=== PATIENT | female | born 1985 | race Caucasian/White ===

== ENCOUNTER 2019-07-10 09:00 | Outpatient (REF) | payer SELFPAY ==
[2019-07-12 14:01] LABS: Quantiferon Mitogen 7.62 IU/mL; Quantiferon Nil 0.01 IU/mL; Quantiferon Plus TB1 0.01 IU/mL; Quantiferon Plus TB2 0.01 IU/mL; Quantiferon TB Gold NEGATIVE (NEGATIVE)
== END 2019-07-10 09:01 | disposition home or self-care (01) ==
LOC: LAB 09:00
PROVIDERS: Family Provider Registered Nurse; PCP Registered Nurse
DX: Z01.89 Encounter for other specified special examinations (principal)
CPT/HCPCS: 86480

== ENCOUNTER 2020-09-01 13:17 | Outpatient (CLI) | payer MEDICAID, SELFPAY ==
--- NOTE | 2020-09-01 13:23 | CT_ITS ---
WS: [id number] CT NECK TECHNIQUE: Contrast-enhanced CT of the neck with coronal and sagittal reformatted images. CLINICAL INFORMATION: NONTOXIC SINGLE THYROID NODLE COMPARISON: Ultrasound March 31, 2020 DLP: 2387.[address] scans at [facility] use at least one of these dose optimization techniques: automat ed exposure control; mA and/or kV adjustment per patient size (includes targeted exams where dose is matched to clinical indication); or iterative reconstruction. FINDINGS: Heterogeneous enhancing enlarged thyroid consistent with goiter. This is similar in appearance to lisa or ultrasound March 2020. No dominant nodules. Bulbous nodular enlargement of the isthmus. Partially visualized intracranial contents are normal. Mastoid air cells and paranasal sinuses are we ll aerated. Parotid glands are normal. Normal submandibular glands. Normal parapharyngeal fat. Normal posterior nasopharynx. No evidence of supraglottic or glottic mass. Normal subglottic airway. A few slightly prominent cervical lymph nodes not pathologically enlarged. No cervical lymphadenopath y. CT/CT neck w con* [id number] IMPRESSION: 1. Normal salivary glands. 2. No cervical lymphadenopathy. 3. Enlarged heterogeneous thyroid consistent with goiter similar in appearance the prior ultrasound in 2019. Bulbous enlargement of the isthmus. 4. No evidence of supraglottic or glottic mass. 5. No other significant findings.
[2020-09-01] MEDS: iohexol 300 mg/mL 100 mL Btl IV (13:45)
== END 2020-09-01 13:18 | disposition home or self-care (01) ==
LOC: RADWPI 13:22
PROVIDERS: PCP Nurse Practitioner Family; Visit Provider Specialist
DX: E04.1 Nontoxic single thyroid nodule (principal); E04.9 Nontoxic goiter, unspecified
CPT/HCPCS: 70491; Q9967

== ENCOUNTER 2020-11-25 09:20 | Outpatient (CLI) | payer MEDICAID, SELFPAY ==
--- NOTE | 2020-11-25 09:30 | MR_ITS ---
WS: [id number] MRI RIGHT KNEE HISTORY: M25.569 - Pain in unspecified knee COMPARISON: 03/22/2016 and radiographs 10/22/2020 Anterior cruciate ligament: Intact. Posterior cruciate ligament: Intact. Medial collateral ligament: Intact. Posterior lateral corner structures: Intact. Medial menisci: There is increased signal in the posterior horn of the medial meniscus seen in the pe riphery. This is more likely intrasubstance degeneration than a tear. The anterior horn is normal. Lateral meniscus: Intact. Normal signal, size and shape. Extensor mechanism: Distal quadriceps tendon and patellar tendons are intact. Fluid and soft tissue: No joint effusion. No Marie's cyst. Osseous and articular structures: Patellofemoral compartment: Normal. Medial compartment: Very minimal narrowing of the medial compartment. Mild thinning of the cartilage but no full-thickness defect or marrow edema. No significant osteophyte formation. Lateral compartment: Normal. MR/MR knee RT wo con* [id number] IMPRESSION: 1. Very mild intrasubstance degeneration in the periphery posterior horn media l meniscus. No tear identified. 2. No joint effusion. 3. Mild narrowing medial compartment.
== END 2020-11-25 09:21 | disposition home or self-care (01) ==
LOC: RADSHAW 09:25
PROVIDERS: PCP Nurse Practitioner Family; Visit Provider Orthopaedic Surgery
DX: M25.561 Pain in right knee (principal)
CPT/HCPCS: 73721

== ENCOUNTER → 2021-05-17 09:12 | Outpatient (BNVA) | payer MEDICAID, SELFPAY | PROVIDERS: PCP Nurse Practitioner Family; Referring Provider Nurse Practitioner Family; Visit Provider Orthopaedic Surgery | DX: M54.50 Low back pain, unspecified (principal) | CPT/HCPCS: 72110 ==

== ENCOUNTER → 2022-05-04 10:33 | Outpatient (BNVA) | payer MEDICAID, SELFPAY | PROVIDERS: PCP Nurse Practitioner Family; Visit Provider Student in an Organized Health Care Education/Training Program | DX: M67.431 Ganglion, right wrist (principal) | CPT/HCPCS: 73110 ==

== ENCOUNTER 2022-05-04 13:42 | Outpatient (CLI) | payer MEDICAID, SELFPAY | END 2022-05-04 13:43 | disposition home or self-care (01) | LOC: SPT 13:43 | PROVIDERS: PCP Nurse Practitioner Family; Visit Provider Student in an Organized Health Care Education/Training Program | DX: Z46.89 Encounter for fitting and adjustment of other specified devices (principal); M25.531 Pain in right wrist | CPT/HCPCS: 97760; L3908 ==

== ENCOUNTER 2022-05-31 09:01 | Outpatient (CLI) | payer MEDICAID, SELFPAY ==
--- NOTE | 2022-05-31 09:12 | FL_ITS ---
WS: [id number] Upper GI series with air contrast, 05/31/2022 Clinical Data: CHEST DISCOMFORT Comparison: None. Fluoroscopy time: 1min [id number] # of spot films: 12 Findings: The patient swallowed the air and barium mixture and it flowed from the oropharynx into the hypophary nx without hesitation. There is no penetration or aspiration. The barium proceeded into the esophagus which showed no polyp, masses, erosion, hiatal hernia, esophagitis, fistula or erosion. No reflux wa s seen. The barium proceeded into the stomach which was well-distended. There are no ulcerations or e xtrinsic masses of the stomach. No polyps could be seen. There is no gastric mucosal erosion. The bar ium passed into the duodenum which showed no ulcer. The proximal duodenum was normal. There are clips in the right upper quadrant from a cholecystectomy. FL/FL upper GI series [id number] Impression: Negative upper GI series.
== END 2022-05-31 09:02 | disposition home or self-care (01) ==
LOC: RAD 09:05
PROVIDERS: PCP Nurse Practitioner Family; Visit Provider Nurse Practitioner Family
DX: R07.89 Other chest pain (principal)
CPT/HCPCS: 74240

== ENCOUNTER → 2022-10-09 09:16 | Outpatient (BNVA) | payer MEDICAID, SELFPAY | PROVIDERS: PCP Nurse Practitioner Family; Visit Provider Obstetrics & Gynecology | DX: E03.9 Hypothyroidism, unspecified (principal); N76.0 Acute vaginitis; R10.2 Pelvic and perineal pain | CPT/HCPCS: 83036; 84443 ==

== ENCOUNTER → 2022-11-08 15:04 | Outpatient (BNVA) | payer MEDICAID, SELFPAY | PROVIDERS: PCP Nurse Practitioner Family; Visit Provider Obstetrics & Gynecology | DX: D25.9 Leiomyoma of uterus, unspecified (principal) | CPT/HCPCS: 76830 ==

== ENCOUNTER → 2023-01-31 08:15 | Outpatient (BNVA) | payer MEDICAID, SELFPAY | PROVIDERS: PCP Nurse Practitioner Family; Visit Provider Nurse Practitioner Women's Health | DX: N39.0 Urinary tract infection, site not specified (principal) | CPT/HCPCS: 81000 ==

== ENCOUNTER → 2023-03-01 01:00 | Outpatient (BNVA) | payer MEDICAID, SELFPAY | PROVIDERS: PCP Nurse Practitioner Family; Visit Provider Nurse Practitioner Women's Health | DX: R30.0 Dysuria (principal) | CPT/HCPCS: 81000; 87086 ==

== ENCOUNTER → 2023-03-20 14:11 | Outpatient (BNVA) | payer MEDICAID, SELFPAY | PROVIDERS: PCP Nurse Practitioner Family; Visit Provider Student in an Organized Health Care Education/Training Program | DX: M67.431 Ganglion, right wrist | CPT/HCPCS: 73110 ==

== ENCOUNTER → 2023-04-04 16:00 | Outpatient (BNVA) | payer MEDICAID, SELFPAY | PROVIDERS: PCP Nurse Practitioner Family; Visit Provider Nurse Practitioner Women's Health | DX: Z12.39 Encounter for other screening for malignant neoplasm of breast (principal); Z20.2 Contact with and (suspected) exposure to infections with a predominantly sexual mode of transmission | CPT/HCPCS: 87491; 87591 ==

== ENCOUNTER → 2023-04-12 10:49 | Outpatient (BNVA) | payer MEDICAID, SELFPAY | PROVIDERS: PCP Nurse Practitioner Family; Visit Provider Nurse Practitioner Women's Health | DX: R10.2 Pelvic and perineal pain (principal); N89.8 Other specified noninflammatory disorders of vagina | CPT/HCPCS: 81000; 87086; 87529 ==

== ENCOUNTER → 2023-05-16 09:21 | Outpatient (BNVA) | payer MEDICAID, SELFPAY | PROVIDERS: PCP Nurse Practitioner Family; Visit Provider Nurse Practitioner Women's Health | DX: R30.0 Dysuria (principal) | CPT/HCPCS: 81000; 87086 ==

== ENCOUNTER 2023-05-24 10:14 | Outpatient (CLI) | payer MEDICAID, SELFPAY ==
--- NOTE | 2023-05-24 10:18 | MM_ITS ---
WS: [id number] SCREENING DIGITAL TOMOSYNTHESIS MAMMOGRAM WITH CAD HISTORY: Z12.39 - Encounter for other screening for malignant neop... COMPARISON: 05/23/2018 Bilateral CC and MLO with tomosynthesis views submitted. Synthetic mammography reviewed. Computer aid ed detection analyzed. Breast composition: There are scattered areas of fibroglandular density. No suspicious masses, microc alcifications or architectural distortion. IMPRESSION: MM/[place] [id number] BI-RADS: 1-Negative FOLLOW UP: 1 Year Follow-up
== END 2023-05-24 10:15 | disposition home or self-care (01) ==
PROVIDERS: PCP Nurse Practitioner Family; Visit Provider Nurse Practitioner Women's Health
DX: Z12.31 Encounter for screening mammogram for malignant neoplasm of breast (principal)
CPT/HCPCS: 77063; 77067

== ENCOUNTER → 2023-09-06 13:51 | Outpatient (BNVA) | payer MEDICAID, SELFPAY | PROVIDERS: PCP Nurse Practitioner Family; Visit Provider Nurse Practitioner Women's Health | DX: N89.8 Other specified noninflammatory disorders of vagina (principal) | CPT/HCPCS: 87529 ==

== ENCOUNTER → 2023-11-20 16:30 | Outpatient (BNVA) | payer MEDICAID, SELFPAY | PROVIDERS: PCP Nurse Practitioner Family; Visit Provider Nurse Practitioner Women's Health | DX: R39.9 Unspecified symptoms and signs involving the genitourinary system (principal) | CPT/HCPCS: 81000 ==

== ENCOUNTER → 2023-11-21 15:40 | Outpatient (BNVA) | payer MEDICAID, SELFPAY | PROVIDERS: PCP Nurse Practitioner Family; Visit Provider Nurse Practitioner Women's Health | DX: R39.9 Unspecified symptoms and signs involving the genitourinary system (principal) | CPT/HCPCS: 87086 ==

== ENCOUNTER 2023-11-26 13:54 | Outpatient (CLI) | payer MEDICAID, SELFPAY ==
--- NOTE | 2023-11-26 14:30 | MR_ITS ---
WS: [id number] EXAMINATION: MR foot LT wo con* [id number] ORDER DATE: 11/26/2023 2:30 PM COMPARISON: None. HISTORY: rule out stress fracture CONTRAST: None. TECHNIQUE: Sagittal T1, sagittal STIR, coronal PD, coronal T2, axial T1, axial T2, and axial PD imagi ng with fat saturation technique. FINDINGS: Normal anatomic alignment. Normal ankle mortise. Normal medial and lateral malleolus. Dista l fibula is normal in appearance. Normal talar dome. Normal talocalcaneal articulation. Normal cuboid . Normal bone marrow signal in the tarsal bones. Normal deltoid ligament. Normal ATF. Small amount of fluid in the anterolateral gutter. Trace tenosynovitis along the peroneal tendon sheath. Peroneal longus and brevis appear intact. Dista l Achilles appears intact. Small amount of tenosynovitis involving the flexor compartment tendons, t ibialis posterior and flexor digitorum longus. Normal extensor compartment tendons. Suspected partial tear involving the tibialis posterior with fluid and edema along the medial ankle. Irregularity with fluid and edema along the tendon. MR/MR foot LT wo con* [id number] IMPRESSION: 1. Suspected partial tear involving the tibialis posterior distal to the media l malleolus and dorsal to the navicular with associated increased T2 signal wit h fluid and edema. 2. Small amount of tenosynovitis involving the flexor digitorum longus. 3. Normal peroneal tendons with trace tenosynovitis. 4. No visualized stress fractures
== END 2023-11-26 13:55 | disposition home or self-care (01) ==
LOC: RAD 13:55
PROVIDERS: PCP Nurse Practitioner Family; Visit Provider Podiatrist Foot & Ankle Surgery
DX: M84.30XA Stress fracture, unspecified site, initial encounter for fracture (principal); M65.862 Other synovitis and tenosynovitis, left lower leg; R60.9 Edema, unspecified
CPT/HCPCS: 73718

== ENCOUNTER → 2023-12-17 13:50 | Outpatient (BNVA) | payer SELFPAY | PROVIDERS: PCP Nurse Practitioner Family; Referring Provider Nurse Practitioner Family; Visit Provider Internal Medicine | DX: E07.9 Disorder of thyroid, unspecified (principal); E06.3 Autoimmune thyroiditis; E03.9 Hypothyroidism, unspecified; E04.1 Nontoxic single thyroid nodule | CPT/HCPCS: 36415; 83516; 84439; 84443; 86376; 86800 ==

== ENCOUNTER 2024-02-28 12:29 | Outpatient (CLI) | payer SELFPAY ==
[2024-02-28 13:32] LABS: Free T4 Free Thyroxine 1.15 ng/dL (0.82-1.77); Thyroid Stimulating Hormone 2.33 uIU/mL (0.27-4.20)
== END 2024-02-28 12:30 | disposition home or self-care (01) ==
LOC: LAB 12:30
PROVIDERS: PCP Nurse Practitioner Family; Visit Provider Internal Medicine
DX: E07.9 Disorder of thyroid, unspecified (principal); E06.3 Autoimmune thyroiditis; E03.9 Hypothyroidism, unspecified
CPT/HCPCS: 36415; 84439; 84443

== ENCOUNTER → 2024-03-11 14:04 | Outpatient (BNVA) | payer SELFPAY | PROVIDERS: PCP Nurse Practitioner Family; Visit Provider Orthopaedic Surgery | DX: M48.062 Spinal stenosis, lumbar region with neurogenic claudication (principal) | CPT/HCPCS: 72110; 73560; 73565 ==

== ENCOUNTER → 2024-04-18 11:15 | Outpatient (BNVA) | payer SELFPAY | PROVIDERS: PCP Nurse Practitioner Family; Visit Provider Nurse Practitioner | DX: M25.562 Pain in left knee (principal); M23.52 Chronic instability of knee, left knee | CPT/HCPCS: 73560; 73565 ==

== ENCOUNTER → 2024-04-21 16:23 | Outpatient (BNVA) | payer SELFPAY | PROVIDERS: PCP Nurse Practitioner Family; Visit Provider Nurse Practitioner | DX: M67.431 Ganglion, right wrist (principal) | CPT/HCPCS: 36415; 80053; 81001; 85025 ==

== ENCOUNTER → 2024-04-24 13:11 | Outpatient (BNVA) | payer SELFPAY | PROVIDERS: PCP Nurse Practitioner Family; Visit Provider Nurse Practitioner Women's Health | DX: R39.9 Unspecified symptoms and signs involving the genitourinary system (principal) | CPT/HCPCS: 81000 ==

== ENCOUNTER 2024-05-16 12:56 | Outpatient (CLI) | payer SELFPAY ==
[2024-05-16 13:48] LABS: Free T4 Free Thyroxine 1.29 ng/dL (0.82-1.77); Thyroid Stimulating Hormone 1.82 uIU/mL (0.27-4.20)
== END 2024-05-16 12:57 | disposition home or self-care (01) ==
LOC: LAB 12:56
PROVIDERS: PCP Nurse Practitioner Family; Visit Provider Internal Medicine
DX: E06.3 Autoimmune thyroiditis (principal); E04.1 Nontoxic single thyroid nodule; E03.9 Hypothyroidism, unspecified
CPT/HCPCS: 36415; 84439; 84443

== ENCOUNTER 2024-06-18 06:00 | Outpatient (RCR) | payer MEDICAID, SELFPAY | END 2024-07-04 23:59 | disposition home or self-care (01) | LOC: APT 06:00 | PROVIDERS: Visit Provider Specialist | DX: M25.562 Pain in left knee (principal) | CPT/HCPCS: 97110; 97140; 97161; 97530 ==

== ENCOUNTER → 2024-06-19 14:30 | Outpatient (BNVA) | payer MEDICAID, SELFPAY | PROVIDERS: PCP Nurse Practitioner Family; Referring Provider Nurse Practitioner; Visit Provider Specialist | DX: R29.898 Other symptoms and signs involving the musculoskeletal system (principal); R20.2 Paresthesia of skin; M25.539 Pain in unspecified wrist; R20.0 Anesthesia of skin | CPT/HCPCS: 95911 ==

== ENCOUNTER → 2024-07-02 10:20 | Outpatient (BNVA) | payer SELFPAY | PROVIDERS: PCP Nurse Practitioner Family; Visit Provider Nurse Practitioner | DX: R20.0 Anesthesia of skin (principal); R20.2 Paresthesia of skin; M67.431 Ganglion, right wrist; M25.531 Pain in right wrist | CPT/HCPCS: 36415; 80053; 85025 ==

== ENCOUNTER 2024-07-05 06:30 | Outpatient (RCR) | payer MEDICAID, SELFPAY | END 2024-08-01 23:59 | disposition home or self-care (01) | LOC: APT 06:30 | PROVIDERS: PCP Nurse Practitioner Family; Visit Provider Specialist | DX: M25.562 Pain in left knee (principal) | CPT/HCPCS: 97110; 97140; 97530 ==

== ENCOUNTER → 2024-07-14 08:06 | Outpatient (BNVA) | payer MEDICAID, SELFPAY | PROVIDERS: PCP Nurse Practitioner Family; Visit Provider Nurse Practitioner | DX: M25.532 Pain in left wrist (principal); M25.522 Pain in left elbow | CPT/HCPCS: 73080; 73110; 99214 ==

== ENCOUNTER 2024-07-29 05:56 | Day surgery (SDC) | payer SELFPAY ==
[2024-07-29] VITALS (10 sets, daily range): BP systolic 105–148; BP diastolic 60–88; PULSE 67–88; RESP 14–21; TEMP 36.1–36.6; O2SAT 94–98; BMI 35.9
[2024-07-29 06:15] LABS: OR HCG Qualitative Urine Negative (Negative)
[2024-07-29] MEDS: acetaminophen 1,000 MG/100 ML PIGGYBACK 400 MG IV (06:21)
[2024-07-29] MEDS: sodium chloride 0.9% 1,000 ML 30 ML IV (06:28)
--- NOTE | 2024-07-29 06:44 | ANES.PREANE2 ---
Pre-Anesthetic Assessment Height/Weight: Height 1.55 m Weight 86.183 kg Temp Pulse Resp BP Pulse Ox O2 Del Method 97.3 F L 83 16 148/88 98 Room Air 07/29/24 06:07 07/29/24 06:07 07/29/24 06:07 07/29/24 06:07 07/29/24 06:07 07/29/24 06:07 Operation Date: 07/29/24 07:00 Proposed Procedures p RIGHT THUMB GANGLION CYST REMOVAL(Right) - Yanira Fuentes MD Familial anesthetic complications: None Was Beta Sabrina taken within 24 hours: N/A Was Clonidine taken within 24 hours: N/A Last intake: Intake Last Liquid Date 07/28/24 Last Liquid Time 22:00 Last Solid Date 07/28/24 Last Solid Time 20:00 Social No alcohol and No tobacco Exam alert, oriented x 3, clear to auscultation bilaterally and regular rate & rhythm Airway Mallampati: Class I Dentition: full Metabolic Morbid Obesity and Thyroid Disease Anesthetic Plan ASA status: 2 Anesthesia: MAC Risk of > 500 ml blood loss (7ml/kg in children): No Medications/Allergies Home Medications ?Medication ?Instructions ?Recorded ?Confirmed ?Last Taken ?Type vitamin B12 1 mg-folic acid 0.8 mg 1 tab PO DAILY 05/19/24 07/28/24 07/28/24 History tablet levothyroxine 50 mcg capsule 50 mcg PO DIRECTED 07/28/24 07/28/24 07/28/24 History Allergies Allergy/AdvReac Type Severity Reaction Status Date / Time hydromorphone (From Dilaudid) Allergy ADR/ALGY-Hy Verified 07/28/24 12:19 potension meperidine Allergy lowers Verified 07/28/24 12:19 blood pressure Current Medications Generic Name Dose Route Start Last Admin Trade Name Freq PRN Reason Stop Dose Admin Sodium Chloride 1,000 mls @ 30 mls/hr 07/29/24 06:00 07/29/24 06:28 Sodium Chloride 0.9% IV 07/30/24 05:59 30 mls/hr .Q24H UZIEL Administration PFSH Anesthesia Surgical History History of History of cholecystectomy Family History Mother Colon cancer Father Heart disease Hypertension Grandfather Heart disease paternal Grandmother Heart disease Paternal Denies family history of Ovarian cancer Diabetes Breast cancer Uterine cancer Thyroid disease Stroke Social History Smoking and tobacco/nicotine status: never used tobacco/nicotine Alcohol intake: never Female Reproductive History Date of last menstrual period: 07/25/24 Data Anesthesia Cardiac Studies: No Data to Display
--- NOTE | 2024-07-29 07:04 | W.PM.OPSUD ---
Surgery/Procedure H&P Update DATE OF PROCEDURE: July 29, 2024 DATE H&P PERFORMED: 07/14/24 H&P UPDATE INFORMATION: I have reviewed H&P completed within last 30 days, I have examined patient prior to procedure, No changes to prior documentation and H&P is in [facility] [place] [place] EMR on date indicated PLANNED PROCEDURE: Operation Date: 07/29/24 07:00 Proposed Procedures p RIGHT THUMB GANGLION CYST REMOVAL(Right) - Yanira Fuentes MD Related Problem List Diagnoses (1) Ganglion cyst of volar aspect of right wrist:
[2024-07-29] MEDS: ceFAZolin 2,000 mg SDV 2000 MG IVP (07:06)
[2024-07-29] MEDS: BUPivacaine 0.5% INJ 30 mL XX (07:30)
--- NOTE | 2024-07-29 08:12 | PM.OP ---
Operative Report Date of procedure: July 29, 2024 Pre-op diagnosis: Right radial volar wrist ganglion cyst at the base of the thumb Post-op diagnosis: Right radial volar wrist ganglion cyst at the base of the thumb Post-op findings: Large ganglion cyst Procedure done: Excision volar wrist ganglion right Implants: None Specimens removed/disposition: Ganglion cyst submitted to pathology Pathology: Ganglion cyst submitted to pathology Surgeon: Yanira Fuentes MD [employer] Marketing Representative: None Anesthesia: General (Per LMA, ASA 2) Estimated blood loss (mL): 2 Tourniquet time (min): 17 (At 250 mmHg) IV fluids (mL): 600 Urine output (mL): 0 (No Freitas) Complications: None Findings: Large ganglion cyst Condition: stable Disposition: PACU (Then return to same-day surgery for discharge to home) Brief History: This 39-year-old woman presents with complaints of ganglion cyst on the volar surface radially of the right wrist. This is at the base of her thumb. This is painful for her and at times causes numbness into the thumb. She had evaluation with nerve conduction study secondary to some history of numbness. This was negative for carpal tunnel. At that point, she was scheduled for ganglion cyst excision. Risks and complications were discussed with her. Consents were signed and questions were answered. Procedure: The patient was brought to the operating theater. The patient had a general anesthesia per LMA, ASA 2. The tourniquet was elevated to 250 mmHg for a total tourniquet time of 17 minutes. The patient was also given Ancef 2 g preoperatively. The arm was then prepped and draped with DuraPrep in usual fashion with the arm draped free. A surgical pause was performed. At the time, the surgical pause, we confirmed the site and side of surgery. We also confirmed the patient's identity, appropriate and timely administration of preoperative antibiotics and preoperative surgical markings. The ganglion cyst was evaluated. There was a large vein laying to the radial side of it which was marked preoperatively. This was also marked prior to elevation of the tourniquet. Incision was marked and this incision was slightly curved and accomplished uneventfully. Dissection continued through skin and soft tissues using a scalpel. The ganglion cyst wall was quite thin. It did leak some of the gelatinous material within the ganglion cyst. We were able to place a small stitch there for retraction and able to shell the ganglion out of the area without injury to the surrounding structures. Hemostasis was obtained using electrocautery. The tourniquet was released to evaluate for hemostasis. Attention was directed to closure. The wound was irrigated with ropivacaine plain. It was then closed with 4-0 Monocryl subcuticular. Sterile dressing was then placed consisting of Dermabond, OpSite, fluffed fluffs, sterile soft roll, and an Maciej wrap. The tourniquet was released after 17 minutes. There were no complications. There were no specimens. The procedure was well tolerated. Plan is the patient will be discharged home. Related Problem List Diagnoses (1) Ganglion cyst of volar aspect of right wrist:
--- NOTE | 2024-07-29 09:10 | ANE.PACU2 ---
Inpatient post-anesthesia follow up: Airway intact: Yes Vital signs: Temperature 98 F Pulse Rate 67 Respiratory Rate 16 Blood Pressure 120/60 Pulse Oximetry 96 Oxygen Delivery Me thod Room Air Oxygen Flow Rate Fraction of Inspir ed Oxygen Hydration adequate: Yes Nausea and vomiting: No Pain level: 1 Mental status: Baseline
== END 2024-07-29 09:10 | disposition home or self-care (01) ==
PROVIDERS: PCP Nurse Practitioner Family; Visit Provider Specialist
PROC: (CPT 25111; principal; 2024-07-29 07:00)
DX: M67.431 Ganglion, right wrist (principal); E66.01 Morbid (severe) obesity due to excess calories; Z68.35 Body mass index [BMI] 35.0-35.9, adult; Z79.890 Hormone replacement therapy; Z88.5 Allergy status to narcotic agent; Z90.49 Acquired absence of other specified parts of digestive tract; E07.9 Disorder of thyroid, unspecified
CPT/HCPCS: 25111; 81025; 88304; J0131; J0690; J1100; J2250; J2371; J2405; J2704; J3010; J3490; J7030

== ENCOUNTER 2024-08-02 06:00 | Outpatient (RCR) | payer SELFPAY | END 2024-09-01 23:59 | disposition home or self-care (01) | LOC: APT 06:00 | PROVIDERS: PCP Nurse Practitioner Family; Visit Provider Specialist | DX: M25.562 Pain in left knee (principal) | CPT/HCPCS: 97110 ==

== ENCOUNTER 2024-08-27 15:21 | Outpatient (CLI) | payer SELFPAY | END 2024-08-27 15:22 | disposition home or self-care (01) | LOC: LAB 15:21 | PROVIDERS: PCP Nurse Practitioner Family; Visit Provider Internal Medicine | DX: E07.9 Disorder of thyroid, unspecified (principal); E06.3 Autoimmune thyroiditis; E03.9 Hypothyroidism, unspecified; E04.1 Nontoxic single thyroid nodule | CPT/HCPCS: 36415; 84439; 84443 ==

== ENCOUNTER → 2024-09-01 16:03 | Outpatient (BNVA) | payer SELFPAY | PROVIDERS: PCP Nurse Practitioner Family; Visit Provider Nurse Practitioner | DX: M06.4 Inflammatory polyarthropathy (principal) | CPT/HCPCS: 36415; 80053; 84550; 85025; 85651; 86140; 86431 ==

== ENCOUNTER 2025-03-26 12:25 | Outpatient (CLI) | payer SELFPAY ==
[2025-03-26 13:33] LABS: Free T4 Free Thyroxine 1.18 ng/dL (0.82-1.77); Thyroid Stimulating Hormone 1.76 uIU/mL (0.27-4.20)
== END 2025-03-26 12:26 | disposition home or self-care (01) ==
PROVIDERS: PCP Nurse Practitioner Family; Visit Provider Internal Medicine
DX: E03.9 Hypothyroidism, unspecified (principal)
CPT/HCPCS: 36415; 84439; 84443